=== PATIENT | male | born 1955 | race American Indian/Alaskan Native ===

== ENCOUNTER 2017-05-28 20:33 | Emergency (ER) | payer SELFPAY ==
[2017-05-28 21:13] LABS: Basophils % (Auto) 0.4 % (0.0-1.8); Eosinophils % (Auto) 0.8 % (0.0-4.3); Hematocrit 42.2 % (35.5-45.6); Hemoglobin 13.7 gm/dl (11.8-15.2); Mean Corpuscular HGB Conc 33 % (32-34); Mean Corpuscular Hemoglobin 30 pg (28-32); Mean Corpuscular Volume 92 fl (84-94); Platelet Count 228 K/mm3 (140-440); Red Cell Distribution Width 13.5 % (13.2-15.2); White Blood Count 7.1 K/mm3 (4.5-11.0)
[2017-05-28 21:23] LABS: Anion Gap 18 mmol/L; Blood Urea Nitrogen 9 mg/dL (9-20); Carbon Dioxide 26 mmol/L (22-30); Chloride 98.6 mmol/L (98-107); Glucose 156 mg/dL (75-100); Potassium 4.2 mmol/L (3.6-5.0); Sodium 138 mmol/L (137-145)
[2017-05-29] MEDS ORDERED: NORVASC PO ONE (08:19)
--- NOTE | 2017-05-29 08:33 | Emergency Department Report ---
HPI - General Chief Complaint: Pain General Time Seen by Provider: 05/29/17 08:06 - HPI HPI: This is a 61 year-old male presents to the emergency department with complaint of a one to 2 week history of a generalized burning sensation to the chest, abdomen, back, decreased appetite and possibly some constipation. The patient says that he does not have any nausea or vomiting but just does not have the desire to eat anything. For the past week he has not had any satiety and bowel movements but also has not eaten much. He presents with elevated blood pressure but has been out of his Norvasc 10 mg for the past 2 weeks. He does not currently have a primary care physician. He has not taken anything for his symptoms prior presentation. He denies any shortness of breath, fever, dysuria. No recent travel or sick contacts at home. ED Past Medical Hx - Past Medical History Hx Hypertension: Yes - Surgical History Past Surgical History?: No - Social History Smoking Status: Never Smoker Substance Use Type: None - Medications Home Medications: Home Medications Medication Instructions Recorded Confirmed Last Taken Type Docusate Sodium [Colace] 100 mg PO BID PRN #20 capsule 05/29/17 Unknown Rx Magnesium Citrate [Citrate of 300 ml PO NOW #1 bottle 05/29/17 Unknown Rx Magnesia] amLODIPine [Norvasc] 10 mg PO DAILY #30 tab 05/29/17 Unknown Rx ED Review of Systems ROS: Stated complaint: CHEST PAIN Other details as noted in HPI Comment: All other systems reviewed and negative Constitutional: denies: chills, fever Eyes: denies: eye pain, eye discharge, vision change ENT: denies: ear pain, throat pain Respiratory: denies: cough, shortness of breath, wheezing Cardiovascular: denies: palpitations, syncope Endocrine: other (decreased appetite). denies: unexplained weight loss Gastrointestinal: denies: nausea, vomiting Genitourinary: denies: urgency, dysuria Musculoskeletal: denies: joint swelling, arthralgia Skin: denies: rash, change in color Neurological: denies: headache, weakness Physical Exam - Physical Exam Vital Signs: Vital Signs 05/28/17 05/29/17 20:45 03:52 Temperature 97.5 F L 97.9 F Pulse Rate 74 57 L Respiratory 18 18 Rate Blood Pressure 177/81 178/81 O2 Sat by Pulse 100 100 Oximetry Physical Exam: GENERAL: The patient is well-developed well-nourished. HEENT: Normocephalic. Atraumatic. Extraocular motions are intact. Patient has moist mucous membranes. Pupils equal reactive to light bilaterally. NECK: Supple. Trachea is midline. CHEST/LUNGS: Clear to auscultation. There is no respiratory distress noted. HEART/CARDIOVASCULAR: Regular. There is no tachycardia. There is no gallop rub or murmur. ABDOMEN: Abdomen is soft, nontender. Patient has normal bowel sounds. There is no abdominal distention. SKIN: Skin is warm and dry. No obvious rash. NEURO: The patient is awake, alert, and oriented. The patient is cooperative. The patient has no focal neurologic deficits. The patient has normal speech and gait. Cranial nerves II through XII grossly intact. MUSCULOSKELETAL: There is no tenderness or deformity. There is no limitation range of motion. There is no evidence of acute injury. BACK: No midline thoracic or lumbar tenderness to palpation or deformity. ED Course Vital Signs 05/28/17 05/29/17 20:45 03:52 Temperature 97.5 F L 97.9 F Pulse Rate 74 57 L Respiratory 18 18 Rate Blood Pressure 177/81 178/81 O2 Sat by Pulse 100 100 Oximetry ED Medical Decision Making - Lab Data Result diagrams: 05/28/17 20:51 05/28/17 20:51 - EKG Data -: EKG Interpreted by Me EKG shows normal: sinus rhythm, axis, intervals, QRS complexes, ST-T waves Rate: normal - EKG Data When compared to previous EKG there are: previous EKG unavailable Interpretation: normal EKG - Radiology Data Radiology results: image reviewed interpreted by me: Abdominal x-ray shows nonspecific nonobstructive bowel gas and some stool throughout the colon. - Medical Decision Making 61-year-old male presents with a complaint of some discomfort and/or a burning sensation to most of his entire body. I did not see any visible rash or any signs of inflammation and the discomfort is not reproducible to palpation. He has normal sounding heart and lungs to auscultation. There are no focal, motor or sensory deficits. The discomfort does involve his chest but he is not having chest pain. Despite this he had a EKG that is normal without ST elevation CA, ischemia or dysrhythmia and had some troponins done through triage that were negative. The rest of his labs are unremarkable as well. Normal thyroid function. He complained of some signs of constipation so an x- ray of the abdomen was done that shows a mild to moderate amount of stool but no signs of obstruction or impaction. He did have elevated blood pressure and was given a dose of amlodipine but it did not have time to work prior to discharge, but he did have some decrease in the blood pressure to a more reasonable level. He has been given referrals for primary care and a refill of his amlodipine. He will return to the ER if any worsening of symptoms or any acute distress. - Differential Diagnosis dermatitis, neuropathy, CA Critical Care Time: No Critical care attestation.: If time is entered above; I have spent that time in minutes in the direct care of this critically ill patient, excluding procedure time. ED Disposition Clinical Impression: Noncompliance with medication regimen, Burning sensation, Increased stool volume Hypertension Qualifiers: Hypertension type: essential hypertension Qualified Code(s): I10 - Essential ( primary) hypertension Disposition: - TO HOME OR SELFCARE Is pt being admited?: No Condition: Stable Instructions: Constipation (ED), Hypertension (ED) Additional Instructions: Please follow up with a primary care physician regarding your elevated blood pressure, generalized burning sensation, decreased appetite and for a annual physical examination. I've restarted you on your blood pressure medication. Return to the emergency Department with any worsening of your symptoms or any acute distress. Prescriptions: amLODIPine [Norvasc] 10 mg PO DAILY #30 tab Docusate Sodium [Colace] 100 mg PO BID PRN #20 capsule PRN Reason: Constipation Magnesium Citrate [Citrate of Magnesia] 300 ml PO NOW #1 bottle Referrals: PRIMARY RADHA, [Primary Care Provider] - 3-5 Days RAEANN FERNANDEZ MD [Staff Physician] - 3-5 Days SUNITA ALFORD MD [Staff Physician] - 3-5 Days PATTY NORMAN MD [Staff Physician] - 3-5 Days Time of Disposition: 09:59
--- NOTE | 2017-05-29 08:44 | XRay Report ---
ABDOMEN RADIOGRAPHS INDICATION: Constipation. COMPARISON: None similar at this institution. FINDINGS: Frontal abdominal supine and upright radiographs demonstrate a nonobstructive bowel gas pattern. Mild to moderate colonic stool, most along the ascending colon. No focal suspicious calcifications, pneumatosis or pneumoperitoneum. Clear visualized lung bases. Top normal heart size. Multilevel spinal spondylosis. Small pelvic phleboliths. CONCLUSION: No significant radiographic abnormality, as described. Thank you for the opportunity to participate in this patient's care.
[2017-05-29 09:07] LABS: Alanine Aminotransferase 13 units/L (7-56); Albumin 4.5 g/dL (3.9-5); Albumin/Globulin Ratio 1.3 %; Alkaline Phosphatase 50 units/L (35-129); Lipase 34 units/L (13-60); Total Protein 7.9 g/dL (6.3-8.2)
[2017-05-29 09:11] LABS: Bilirubin,Direct < 0.2 mg/dL (0-0.2); Bilirubin,Indirect 0.2 mg/dL
[2017-05-29 09:50] VITALS: BP 160/78
== END 2017-05-29 10:09 | disposition home or self-care (01) ==
LOC: ED 20:33
DX: K59.00 Constipation, unspecified (principal); I10 Essential (primary) hypertension; Z91.14 Patient's other noncompliance with medication regimen
CPT/HCPCS: 36415; 74020; 80048; 80074; 83690; 84443; 84484; 85025; 93005; 93010